=== PATIENT | female | born 1990 | race Caucasian/White ===

== ENCOUNTER 2025-06-13 16:49 | Emergency (ER) | payer BC ==
[~2025-06-13] VITALS: Ht 160 cm; Wt 78.0 kg
[2025-06-13 17:14] VITALS: O2SAT 100
[2025-06-13 18:10] LABS: BASOPHILS % 0.4 % (0.0-2.0); EOSINOPHILS % 0.6 % (0.0-5.0); HEMATOCRIT. 41.8 % (36.0-48.0); HEMOGLOBIN. 13.5 g/dL (12.0-16.0); LYMPHOCYTES % 22.1 % (20.0-50.0); MEAN PLATELET VOLUME 9.5 fl (7.4-10.4); MONOCYTES % 3.9 % (2.0-8.0); NEUTROPHILS % 73.0 % (40.0-76.0); PLATELET 279 x1000/uL (130-400); RED BLOOD CELL COUNT 5.03 mill/uL (4.2-5.4); RED CELL DISTRIBUTION WIDTH 16.6 % (11.6-14.6)
[2025-06-13 18:23] LABS: GLUCOSE URINE NEGATIVE (NEGATIVE); KETONES URINE NEGATIVE (NEGATIVE); LEUKOCYTE ESTERASE URINE 3+ (NEGATIVE); NITRITE URINE POSITIVE (NEGATIVE); OCCULT BLOOD URINE 2+ (NEGATIVE); PH URINE 6.5 (4.5-8.0); PROTEIN URINE NEGATIVE (NEGATIVE); SPECIFIC GRAVITY URINE 1.008 (1.005-1.030); UROBILINOGEN URINE 0.2 E.U./dL (0.2-1.0)
[2025-06-13 18:26] LABS: CREATININE 0.7 mg/dL (0.6-1.0); UREA NITROGEN BLOOD < 5 mg/dL (9-23)
[2025-06-13 18:41] LABS: COLOR URINE STRAW (YELLOW)
[2025-06-13 18:42] LABS: CLARITY URINE SL HAZY (CLEAR)
[2025-06-13 18:43] LABS: BACTERIA URINE TRACE; RBC URINE 0-2 /hpf (0-2); SQUAMOUS EPITHELIAL CELL URINE RARE /lpf (RARE/1+); WBC URINE 25-50 /hpf (0-2)
[2025-06-13] MEDS ORDERED: ACETAMINOPHEN 500MG TABLET PO ONE (19:15)
[2025-06-13] MEDS: ACETAMINOPHEN 500MG TABLET PO SCH (21:00)
[2025-06-13] MEDS ORDERED: CEPH500C2 MT (23:37)
[2025-06-13 23:56] VITALS: BP 120/74; PULSE 70; RESP 16; TEMP 36.9; O2SAT 100
== END 2025-06-14 00:02 | disposition home or self-care (01) ==
LOC: ER 16:49
DX: O20.9 Hemorrhage in early pregnancy, unspecified (principal); O23.41 Unspecified infection of urinary tract in pregnancy, first trimester; N39.0 Urinary tract infection, site not specified; R10.20 Pelvic and perineal pain unspecified side; Z3A.01 Less than 8 weeks gestation of pregnancy
CPT/HCPCS: 36415; 76801; 80048; 81003; 81025; 84702; 85025; 86850; 86900; 99284